=== PATIENT | male | born 1995 | race Caucasian/White ===

== ENCOUNTER 2020-03-22 15:41 | Emergency (ER) | payer MEDICAID ==
[~2020-03-22] VITALS: Ht 182.9 cm; Wt 76.8 kg
[2020-03-22 15:57] VITALS: BP 117/83
--- NOTE | 2020-03-22 16:04 | NUR ---
Pt to xray via w/c.
[2020-03-22] MEDS ORDERED: ketorolac tromethamine 15mg/ml inj. IM ONE (16:30)
[2020-03-22] MEDS ORDERED: HYDR-4383 PO (17:49)
[2020-03-22] MEDS ORDERED: ONDA4TAB6 PO (17:49)
--- NOTE | 2020-03-22 17:58 | NUR ---
page rn orthopedic for specific brace; unavalible in ER.
--- NOTE | 2020-03-22 18:01 | NUR ---
Pt updated with diagnosis. Pt awaiting board certified orthodontist for knee immobilizer.
--- NOTE | 2020-03-22 18:13 | NUR ---
second page to certified prosthetist/orthotist [id number]
== END 2020-03-22 18:49 | disposition home or self-care (01) ==
LOC: ER 15:42
DX: S82.142A Displaced bicondylar fracture of left tibia, initial encounter for closed fracture (principal); M25.562 Pain in left knee; M25.462 Effusion, left knee; Z79.899 Other long term (current) drug therapy; W18.39XA Other fall on same level, initial encounter; Y93.89 Activity, other specified; Y92.89 Other specified places as the place of occurrence of the external cause; Y99.8 Other external cause status
CPT/HCPCS: 29505; 73564; 96372; 99283; J1885

== ENCOUNTER 2020-03-28 18:01 | Emergency (ER) | payer MEDICAID ==
[~2020-03-28] VITALS: Ht 182.9 cm; Wt 76.8 kg
[~2020-03-28 18:01] MED LIST: HYDR-4383 PO; ONDA4TAB6 PO
[2020-03-28 18:06] VITALS: BP 135/72
[2020-03-28] MEDS ORDERED: HYDR-4383 PO (18:38)
[2020-03-28] MEDS ORDERED: ONDA4TAB6 PO (18:38)
== END 2020-03-28 18:55 | disposition home or self-care (01) ==
LOC: ER 18:02
DX: M25.562 Pain in left knee (principal); Z79.899 Other long term (current) drug therapy
CPT/HCPCS: 99283

== ENCOUNTER 2020-06-29 08:32 | Emergency (ER) | payer MEDICAID ==
[~2020-06-29] VITALS: Ht 182.9 cm; Wt 75.9 kg
== END 2020-06-29 09:42 | disposition home or self-care (01) ==
LOC: ER 08:33
DX: R52 Pain, unspecified (principal); Z20.828 Contact with and (suspected) exposure to other viral communicable diseases; R68.83 Chills (without fever); Z79.899 Other long term (current) drug therapy
CPT/HCPCS: 36415; 87635; 99283